=== PATIENT | male | born 1990 | race Caucasian/White ===

== ENCOUNTER 2019-10-19 16:01 | Emergency (ER) | payer OTHER, SELFPAY ==
[2019-10-19 16:05] VITALS: BP 153/86; PULSE 115; RESP 18; TEMP 37.1; O2SAT 95; BMI 35.9
--- NOTE | 2019-10-19 16:16 | ED.VISSUMM ---
- ER Visit Summary Date of Service: 10/19/19 Chief Complaint: Fall, left shoulder and left ankle pain History of Present Illness: The patient is a 29 M who presents with left shoulder and left ankle pain. He states that he fell about an hour ago at work. He tripped on something and fell. No head trauma or LOC. He has no neck or back pain. He complains of left shoulder and left ankle pain. Pain is worse with walking and with moving. He took nothing for this. Denies any previous surgeries or fractures to any bones on that left side. Physical Examination: Vital signs are reviewed. HEENT exam normal. His neck is nontender. Left shoulder is tender on the posterior side. Has no clavicular tenderness. His range of motion is painful. Left ankle is tender on the lateral malleolus. There is no swelling. He also has painful range of motion of the ankle. His GCS is 15. Test Results: X-rays of the left shoulder and left ankle are negative for any fracture Emergency Department Course and Treatment: Patient was treated with ibuprofen. He will continue with ibuprofen and ice at home. Worker's Compensation forms will be completed. Treatment Plan: [] Disposition: Discharge Impression: Left ankle sprain, left shoulder strain This note was generated with [employer] dictation software. It may contain incorrect words, spelling, and punctuation that were not noted in review of the chart prior to signing ED Disposition - Plan for ED Patient: Referrals: NOT,DEFINED [Primary Care Provider] -
--- NOTE | 2019-10-19 16:25 | RAD_ITS ---
STUDY: X-RAY - LEFT SHOULDER REASON FOR EXAM: Male, 29 years old. FALL, PAIN TECHNIQUE: 2 view(s) of the shoulder. COMPARISON: None. FINDINGS: Normal glenohumeral articulation. Normal acromioclavicular joint. Normal acromion. Intact humeral head and visualized proximal humerus. The soft tissue structures are unremarkable. There is no demonstrated fracture. Normal visualized pulmonary apex. RAD/Shoulder min 2 Views IMPRESSION: No acute displaced fracture, or traumatic subluxation based on current assessment. Electronically Signed: David Macias MD at 16:42 EST Tel [phone], Service support ,
--- NOTE | 2019-10-19 16:25 | RAD_ITS ---
STUDY: X-RAY - LEFT ANKLE REASON FOR EXAM: Male, 29 years old. FALL, PAIN TECHNIQUE: 3 view(s) of the ankle. COMPARISON: None. FINDINGS: Lateral malleolar soft tissue swelling. This is due to ankle sprain. No acute displaced fracture, or traumatic subluxation based on current assessment.. Unremarkable talar dome. There is no evidence of talar tilt or shift. No evidence of radiopaque foreign body. RAD/Ankle min 3 Views IMPRESSION: Ankle sprain. No acute displaced fracture, or traumatic subluxation based on current assessment. Electronically Signed: David Macias MD at 16:45 EST Tel [phone], Service support ,
[2019-10-19] MEDS: Ibuprofen 600 MG Tablet PO (16:34)
--- NOTE | 2019-10-19 16:47 | ED.DEP ---
ED Disposition - Plan for ED Patient: Disposition: Home or Assisted Living Instructions: Sprain, Ankle, with X-Ray Referrals: NOT,DEFINED [NON-STAFF] - [facility] [GROUP OF PHYSICIANS] -
== END 2019-10-19 17:12 | disposition home or self-care (01) ==
PROVIDERS: Emergency Provider Emergency Medicine
DX: S93.402A Sprain of unspecified ligament of left ankle, initial encounter (principal); S46.912A Strain of unspecified muscle, fascia and tendon at shoulder and upper arm level, left arm, initial encounter; Z72.0 Tobacco use; W01.0XXA Fall on same level from slipping, tripping and stumbling without subsequent striking against object, initial encounter; Y93.89 Activity, other specified; Y92.89 Other specified places as the place of occurrence of the external cause; Y99.0 Civilian activity done for income or pay
CPT/HCPCS: 73030; 73610; 99282